=== PATIENT | male | born 1990 | race African-American/Black ===

== ENCOUNTER → 2020-05-26 | Outpatient (CLI) | payer BC, OTHER ==
[~2020-05-26] MED LIST: LACO100T2; TOPI25TA
== END | disposition home or self-care (01) ==
LOC: CT 08:40
PROVIDERS: ATTEND Family Medicine Adult Medicine
DX: S09.90XA Unspecified injury of head, initial encounter (principal); X58.XXXA Exposure to other specified factors, initial encounter; Y93.89 Activity, other specified; Y92.89 Other specified places as the place of occurrence of the external cause; Y99.8 Other external cause status